=== PATIENT | female | born 1980 ===

== ENCOUNTER 2018-06-16 14:53 | Emergency (ER) | payer OTHER ==
--- NOTE | 2018-06-16 15:10 | UC ---
Laceration HPI - HPI Summary HPI Summary: 38 yo female presents with LEFT thumb laceration. She is right handed. She tells me that she was at work and the knife slipped and she sustained a laceration to her left distal thumb and nail. She tried to bandage it herself, but could not with one hand. Unsure date of last tetanus - History Of Current Complaint Stated Complaint: WC FINGER LAC Time Seen by Provider: 06/16/18 15:09 Hx Obtained From: Patient Laceration Location: Finger Mechanism Of Injury: Sharp Trauma Onset/Duration: Sudden Onset - Allergies/Home Medications Allergies/Adverse Reactions: Allergies Allergy/AdvReac Type Severity Reaction Status Date / Time No Known Allergies Allergy Verified 06/16/18 15:12 Home Medications: Home Medications NK [No Home Medications Reported] 06/16/18 [History Confirmed 06/16/18] PMH/Surg Hx/FS Hx/Imm Hx - Additional Past Medical History Additional PMH: None - Surgical History Surgical History: None - Family History Known Family History: Positive: None - Social History Occupation: Employed Full-time Alcohol Use: None Substance Use Type: None Smoking Status (MU): Never Smoked Tobacco Review of Systems All Other Systems Reviewed And Are Negative: Yes Constitutional: Positive: Negative Skin: Positive: Other - Left thumb laceration Respiratory: Positive: Negative Cardiovascular: Positive: Negative Musculoskeletal: Positive: Negative Neurological: Positive: Negative Psychological: Positive: Negative Physical Exam - Summary Physical Exam Summary: GENERAL: NAD. WDWN. No pain distress. SKIN: LEFT THUMB: Distal digit with skin and distal nail partial avulsion. Clean wound. CHEST: No accessory muscle use. Breathing comfortably and in no distress. CV: Pulses intact. Cap refill <2seconds NEURO: Alert. PSYCH: Age appropriate behavior. Triage Information Reviewed: Yes Vital Signs: Vital Signs: Temp Pulse Resp BP Pulse Ox 99.4 F 74 20 122/82 100 06/16/18 15:07 06/16/18 15:07 06/16/18 15:07 06/16/18 15:07 06/16/18 15:07 Vital Signs Reviewed: Yes Laceration Course/Dx - Course/Dx Course Of Treatment: Wound was cleansed with NS. Wound brought into approximation and bandaged with telfa in tubegauze. tdap updated today. - Diagnosis Provider Diagnosis: Avulsion of skin of left thumb Discharge - Sign-Out/Discharge Documenting (check all that apply): Patient Departure All imaging exams completed and their final reports reviewed: No Studies - Discharge Plan Condition: Stable Disposition: HOME Patient Education Materials: Skin Avulsion (ED) Referrals: No Primary Care Phys,NOPCP [Primary Care Provider] - Additional Instructions: If you develop a fever, shortness of breath, chest pain, new or worsening symptoms - please call your PCP or go to the ED. Apply a bandage until well healed - Billing Disposition and Condition Condition: STABLE Disposition: Home
[2018-06-16 15:12] VITALS: BP 122/82
[2018-06-16] MEDS ORDERED: Tetan/Diph/Pertus SYR(Tdap)* 0.5 ML SYR(BOOSTRIX) use SYR IM ONE (15:19)
== END 2018-06-16 15:37 | disposition home or self-care (01) ==
LOC: UCEAST 14:53
DX: S61.112A Laceration without foreign body of left thumb with damage to nail, initial encounter (principal); W26.0XXA Contact with knife, initial encounter; Y93.G1 Activity, food preparation and clean up; Y92.9 Unspecified place or not applicable; Y99.0 Civilian activity done for income or pay
CPT/HCPCS: 99202; G0463